=== PATIENT | male | born 1965 | race Caucasian/White ===

== ENCOUNTER 2018-01-08 20:54 | Emergency (ER) | payer OTHER ==
--- NOTE | 2018-01-08 20:56 | ED AMS/SEIZURE/WEAK/DIZZY ---
History of Present Illness General Chief Complaint: Headache Stated Complaint: BIBA GTZ Source: patient Exam Limitations: no limitations Vital Signs & Intake/Output Vital Signs & Intake/Output Vital Signs Date Time Temp Pulse Resp B/P B/P Pulse O2 O2 Flow FiO2 Mean Ox Delivery Rate 01/09 0129 98.0 70 18 126/78 96 Room Air 01/08 2254 98.2 74 18 122/74 99 Room Air 01/09 2112 98.4 62 18 135/80 100 Room Air 01/08 2110 99 Room Air Allergies Coded Allergies: NO KNOWN ALLERGIES (10/22/13) Reconcile Medications Amoxicillin/Potassium Clav (Augmentin 875-125 Tablet) 875 MG-125 MG TABLET 1 TAB PO BID dental infection Meclizine HCl 25 MG TABLET 1 TAB PO TIDPRN PRN vertigo Ondansetron (Zofran Odt) 4 MG TAB.RAPDIS 1 TAB SL TID PRN nausea Triage Nurses Notes Reviewed? yes Onset: Gradual Duration: hour(s): Timing: recent history Injury Environment: home Severity: mild, moderate Modifying Factors: Improves With: rest. Worsens With: movement. HPI: 52-year-old gentleman prior history of vertigo presents with headache and vertigo. He states that approximately 1 hour prior presentation he was [place]. He developed sudden onset of vertigo with mild nausea, worse with change in his head position. He notes discomfort in his right upper molar region. "I think it's an infection." He had no syncopal symptoms, chest pain, fever, chills, vomiting, diarrhea, abdominal pain. He is otherwise well and has no other concerns. Past History Travel History Traveled to [place] past 21 day No Medical History Any Pertinent Medical History? see below for history Neurological: NONE EENT: NONE Cardiovascular: NONE Respiratory: NONE Gastrointestinal: NONE Hepatic: NONE Renal: NONE Musculoskeletal: NONE Psychiatric: NONE Endocrine: NONE Blood Disorders: NONE Cancer(s): NONE INDUSTRIAL WELDER/Reproductive: NONE Surgical History Surgical History: none Psychosocial History What is your primary language Occitan Family History Hx Contributory? No Review of Systems Review of Systems Constitutional: Denies: see HPI. Physical Exam Physical Exam General Appearance: well developed/nourished, mild distress Comments: Review of Systems - except as otherwise noted in HPI Review of Systems Constitutional:no symptoms. EENTM:no symptoms, except for right upper molar discomfort Respiratory:no symptoms. Cardiovascular:no symptoms. GI:no symptoms. Genitourinary:no symptoms. Musculoskeletal:no symptoms. Skin:no symptoms. Neurological/Psychological:no symptoms. Hematologic/Endocrine:no symptoms. Immunologic/Allergic:no symptoms. All Other Systems: Reviewed and Negative Physical Exam Physical Exam General Appearance: well developed/nourished, no apparent distress Head: atraumatic, normal appearance Eyes: Bilateral: normal appearance. Ears, Nose, Throat: normal pharynx, normal ENT inspection, except for poor dentition and tenderness in right upper molar region c/w infection, no drainage noted. Neck: normal inspection, supple, full range of motion Respiratory: normal breath sounds, chest non-tender, no respiratory distress, quiet respiration, lungs clear Cardiovascular: regular rate/rhythm Gastrointestinal: normal bowel sounds, soft, non-tender, no organomegaly Back: normal inspection, normal range of motion Extremities: normal inspection, normal capillary refill, normal range of motion, no edema Neurologic/Psych: no motor/sensory deficits, awake, alert, oriented x 3, vertigo elicited with head movement, resolved with keeping his head still. Skin: intact, normal color, warm/dry Core Measures ACS in differential dx? No CVA/TIA Diagnosis No Sepsis Present: No Sepsis Focused Exam Completed? No Progress Differential Diagnosis: vertigo vs dehydration vs dental infection vs other. Plan of Care: Orders Procedure Date/time Status ETHANOL 01/09 2116 Complete TROPONIN LEVEL 01/08 2057 Complete COMPREHENSIVE METABOLIC PANEL 01/08 2057 Complete CBC WITHOUT DIFFERENTIAL 01/08 2057 Complete EKG 01/08 2057 Active Current Medications Sig/Suhail Start time Last Medication Dose Stop Time Status Admin Amoxicillin/ 1,000 MG ONCE ONE 01/09 145 UNVr Clavulanate Potassium 01/09 146 (Augmentin) Ibuprofen 800 MG ONCE ONE 01/09 145 AC (Motrin) 01/09 146 Laboratory Tests 01/08/182115: Anion Gap 9, Estimated GFR > 60, BUN/Creatinine Ratio 23.3, Glucose 104 H, Calcium 9.4, Total Bilirubin 0.5, AST 30, ALT 44, Alkaline Phosphatase 59, Troponin I < 0.01, Total Protein 6.7, Albumin 3.6, Globulin 3.1, Albumin/ Globulin Ratio 1.2, CBC w Diff NO MAN DIFF REQ, RBC 4.49 L, MCV 88.3, MCH 29.5, MCHC 33.4, RDW 15.1 H, MPV 7.5, Gran % 72.7, Lymphocytes % 20.3 L, Monocytes % 6.3, Eosinophils % 0.3, Basophils % 0.4, Absolute Granulocytes 7.0 H, Absolute Lymphocytes 1.9, Absolute Monocytes 0.6, Absolute Eosinophils 0, Absolute Basophils 0, Serum Alcohol < 10.0 01/08/182107: Methadone Screen Cancelled, Barbiturate Screen Cancelled, Ur Phencyclidine Scrn Cancelled, Amphetamines Screen Cancelled, U Benzodiazepines Scrn Cancelled, Urine Cocaine Screen Cancelled, Urine Cannabis Screen Cancelled, Urine Color Cancelled, Urine Clarity Cancelled, Urine pH Cancelled, Ur Specific [place] Cancelled, Urine Protein Cancelled, Urine Ketones Cancelled, Urine Nitrite Cancelled, Urine Bilirubin Cancelled, Urine Urobilinogen Cancelled, Ur Leukocyte Esterase Cancelled, Ur Microscopic Cancelled, Urine Hemoglobin Cancelled, Urine Glucose Cancelled 01/08/182105: Serum Alcohol Cancelled Diagnostic Imaging: Viewed by Me: CT Scan. Discussed w/RAD: CT Scan. Radiology Impression: PATIENT: JERAMY JUDD PRESENT AGE: 52 PATIENT ACCOUNT NO: [id number] : 65 LOCATION: [facility] ([place]) ORDERING PHYSICIAN: Ger Boyer MD SERVICE DATE: 01/08/18 EXAM TYPE: CAT - CT HEAD WO IV CONTRAST EXAMINATION: CT HEAD without contrast CLINICAL INFORMATION: Severe vertigo COMPARISON: No prior CT scan available for comparison. TECHNIQUE: Computed axial tomographic sections acquired at 2.5 mm thin section without contrast department standard protocol. DLP: 620 mGy-cm FINDINGS: CEREBRAL HEMISPHERES: There is no evidence of intra-axial or extra- axial mass, hemorrhage or acute infarct. BRAIN PARENCHYMA: Normal anglin-white matter differentiation. SUBDURAL SPACE: No bleed. BASAL GANGLIA AND PINEAL GLAND : Unremarkable VENTRICLES: Symmetric and normal in size. CEREBELLUM AND BRAINSTEM: No space-occupying mass, hemorrhage or acute infarct. CEREBELLOPONTINE ANGLES: No lesion found. ORBITS: No intraorbital mass. VESSELS: Unremarkable SKULL BASE: Unremarkable INCLUDED SINUSES AT SKULL BASE: Clear SKULL AND SKIN: No fracture or bone lesion found. IMPRESSION: No CT evidence of intracranial space-occupying mass, bleed or infarct. DICTATED BY: Lars Tenorio MD DATE/TIME DICTATED:01/08/182323 TRIMMER AND REINFORCER:ATUL DATE/TIME TRANSCRIBED:01/08/182323 CONFIDENTIAL, DO NOT COPY WITHOUT APPROPRIATE AUTHORIZATION. <Electronically signed in Other Vendor System> SIGNED BY: Coby BRADFORD,Lars 01/08/18 9644 Initial ED EKG: normal axis, normal intervals, normal p-waves, normal QRS complex, normal sinus rhythm Departure Departure Disposition: HOME OR SELF CARE Condition: Stable Clinical Impression Primary Impression: Vertigo Secondary Impressions: Dental infection Referrals: Prisca Farmer MD (PCP/Family) Departure Forms: Customer Survey General Discharge Information Prescriptions: Current Visit Scripts Meclizine HCl 1 TAB PO TIDPRN PRN vertigo #30 TAB Ref 1 Ondansetron (Zofran Odt) 1 TAB SL TID PRN nausea #10 TAB Amoxicillin/Potassium Clav (Augmentin 875-125 Tablet) 1 TAB PO BID #20 TAB Comments 01/09/18, 1:41am... pt resting comfortably.... tender right upper molar noted w/ poor dentition... pt feeling better after supportive medications.. pt safe for discharge with abx for dental infection, meclizine/zofran for vertigo... close follow up advised.
[2018-01-08 21:22] LABS: ABSOLUTE BASOPHIL COUNT 0 /CUMM (0.0-0.2); ABSOLUTE EOSINOPHIL COUNT 0 /CUMM (0.0-0.7); ABSOLUTE LYMPH COUNT 1.9 /CUMM (1.2-3.4); ABSOLUTE MONOCYTE COUNT 0.6 /CUMM (0.10-0.60); BASOPHIL % 0.4 % (0.0-2.0); EOSINOPHIL % 0.3 % (0-5); GRANULOCYTE % 72.7 % (42.2-75.2); HEMATOCRIT 39.6 % (42-52); MEAN CORPUSCULAR HGB 29.5 PG (27.0-31.0); MEAN CORPUSCULAR HGB CONC 33.4 G/DL (33.0-37.0); MEAN CORPUSCULAR VOLUME 88.3 FL (80.0-94.0); MEAN PLATELET VOLUME 7.5 FL (7.4-10.4); PLATELET COUNT 284 /CUMM (130-400); RBC DISTRIBUTION WIDTH 15.1 % (11.5-14.5); RED BLOOD CELL CT 4.49 /CUMM (4.70-6.10); WHITE BLOOD CELL COUNT 9.6 /CUMM (4.8-10.8)
--- NOTE | 2018-01-08 23:31 | CT SCAN REPORT ---
EXAMINATION: CT HEAD without contrast CLINICAL INFORMATION: Severe vertigo COMPARISON: No prior CT scan available for comparison. TECHNIQUE: Computed axial tomographic sections acquired at 2.5 mm thin section without contrast department standard protocol. DLP: 620 mGy-cm FINDINGS: CEREBRAL HEMISPHERES: There is no evidence of intra-axial or extra-axial mass, hemorrhage or acute infarct. BRAIN PARENCHYMA: Normal anglin-white matter differentiation. SUBDURAL SPACE: No bleed. BASAL GANGLIA AND PINEAL GLAND: Unremarkable VENTRICLES: Symmetric and normal in size. CEREBELLUM AND BRAINSTEM: No space-occupying mass, hemorrhage or acute infarct. CEREBELLOPONTINE ANGLES: No lesion found. ORBITS: No intraorbital mass. VESSELS: Unremarkable SKULL BASE: Unremarkable INCLUDED SINUSES AT SKULL BASE: Clear SKULL AND SKIN: No fracture or bone lesion found. IMPRESSION: No CT evidence of intracranial space-occupying mass, bleed or infarct.
[2018-01-09] MEDS ORDERED: MECLIZINE HCL25 MG PO (01:14)
[2018-01-09] MEDS ORDERED: ZOFRAN ODT4 M1 SL (01:14)
[2018-01-09] MEDS ORDERED: AUGMENTIN 875-1 EACH PO (01:41)
[2018-01-09 06:00] VITALS: BP 124/64
== END 2018-01-09 06:16 ==
LOC: ERH 20:54
PROVIDERS: Pediatrics
DX: R42 Dizziness and giddiness (principal); K04.7 Periapical abscess without sinus
CPT/HCPCS: 80307; 93005; 93010; 96361; 96374; G0480; J2405; J3490